=== PATIENT | male | born 1940 | race Caucasian/White ===

== ENCOUNTER → 2020-10-27 14:37 | Outpatient (CLI) | payer MEDICARE, OTHER, SELFPAY ==
--- NOTE | 2020-10-27 14:46 | DI.CT.S_ITS ---
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 After the administration of intravenous contrast, 5 mm thick images acquired from the diaphragm to the symphysis pubis after a 10-minute delay. 2 mm thick coronal and sagittal reformats were then performed of the kidneys and ureters. For radiation dose reduction, the following was used: automated exposure control, adjustment of mA and/or kV according to patient size. COMPARISON: None. FINDINGS: Image quality: Excellent. Lung bases: Lung bases are mildly abnormal, with round atelectasis at the posterior medial right lower lobe, and scattered areas of mild pleural plaquing several of which have mild calcification. 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 A lung mass is not seen that would suggest primary or metastatic neoplasm. Urinary system: Both kidneys are normal in size, without hydronephrosis or nephrolithiasis on pre-contrast images. No perinephric fat stranding. There is normal bilateral renal enhancement. Renal calyces appear normal in morphology when filled with contrast. Opacified portions of both ureters demonstrate normal caliber. Bladder wall thickness is normal. No calcified bladder stones. Other solid organs: Liver is normal in size and enhancement. Gallbladder contains numerous predominantly radiolucent gallstones filling the gallbladder lumen. Biliary system is non dilated. Pancreas enhances normally. Spleen is normal in size and enhancement. No adrenal nodules. Peritoneum and bowel: Bowel loops demonstrate normal wall thickness and caliber. No free fluid or air. Nodes and vessels: No retroperitoneal or mesenteric adenopathy by size criteria. Aorta and inferior vena cava are normal in size. Abdominal wall: No ventral hernias. Pelvis: No pathologic free pelvic fluid. No inguinal hernias or adenopathy. At the superior midline margin of the bladder mucosa there is a lobulated mass projecting inferiorly, relatively small in size but easily visualized along the mucosal margins best seen centered on series 3, image 181. This measures up to 1.6 cm oblique AP and 1.5 cm oblique transverse. Bones: No suspicious bony lesions. No vertebral body compression fractures. IMPRESSION: 1. 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 No lung mass seen that would suggest presence of malignancy. 2. The gallbladder is filled with predominantly radiolucent gallstones, some of which contain partial calcification. When clinically appropriate surgical consultation for evaluation of appropriateness for possible cholecystectomy may be warranted. 3. No evidence of metastatic disease related to a polypoid mass measuring up to 1.6 cm within the bladder lumen near the midline superiorly, which does not appear to extend through the bladder muscularis into adjacent structures. No urothelial neoplasm is seen within the kidneys bilaterally and no renal cortical mass lesion is found. Dictated by: Raza Woodall M.D. on 10/27/2020 at 15:55 Approved by: Raza Woodall M.D. on 10/27/2020 at 16:00
== END ==
PROVIDERS: PCP Physician Assistant Medical; Referring Provider Urology; Visit Provider Urology
DX: D49.4 Neoplasm of unspecified behavior of bladder (principal); J92.0 Pleural plaque with presence of asbestos; K80.20 Calculus of gallbladder without cholecystitis without obstruction
CPT/HCPCS: 74178